=== PATIENT | female | born 1990 | race Caucasian/White ===

== ENCOUNTER 2016-04-23 15:43 | Emergency (ER) | payer OTHER ==
[~2016-04-23] VITALS: Ht 160 cm; Wt 57.3 kg
[~2016-04-23 15:43] MED LIST: AZO1 EACH MC; COLACE100 MG PO; IRON160 M1 PO; KEFLEX500 MG PO; MOTRIN800 MG PO; PERCOCET 5/31 TABLET PO; PRENATA CHEWAB1 EACH PO
[2016-04-23 16:44] LABS: HEMATOCRIT 44.2 % (36.0-46.0); MCH 28.6 PG (29.0-34.0); MCHC 34.2 G/DL (30.0-36.0); MCV 83.7 FL (83-99); MEAN PLAT.VOLUME 10.7 uM^3 (9.5-12.4); PLATELET COUNT 163 K/uL (156-360); RBC DIS.WIDTH-CV 13.1 % (11.8-14.6); RED BLOOD COUNT 5.28 M/uL (3.80-5.20); WHITE BLOOD COUNT 11.4 K/uL (4.1-10.2)
[2016-04-23 16:55] LABS: CHLORIDE 109 mEq/L (99-109); POTASSIUM 3.9 mEq/L (3.7-5.4); SODIUM 140 mEq/L (136-147)
[2016-04-23 16:57] LABS: GLUCOSE 97 mg/dL (70-99)
[2016-04-23 16:59] LABS: ANION GAP 13 MEQ/L (2-14); TOTAL BILIRUBIN 0.8 mg/dL (0.0-1.0)
[2016-04-23 17:01] LABS: ALKALINE PHOSPHATASE 82 IU/L (3-129); GFR ESTIMATE (CALCULATED) > 59 mL/min/
[2016-04-23 17:02] LABS: UREA NITROGEN (BUN) 12 mg/dL (9-23)
[2016-04-23 17:03] LABS: DIRECT BILIRUBIN 0.2 mg/dL (0.0-0.3)
[2016-04-23 17:04] LABS: LIPASE 12 U/L (1.0-51.0)
[2016-04-23 17:09] LABS: ADD MIUA? YES; BILIRUBIN NEGATIVE; BLOOD NEGATIVE; COLOR YELLOW ((YELLOW)); GLUCOSE (STRIP) NEGATIVE; KETONES 20; LEUKOCYTES NEGATIVE; NITRITE NEGATIVE; PROTEIN (STRIP) NEGATIVE; UROBILINOGEN 0.2 MG/DL (0.2-1.0)
[2016-04-23 17:13] LABS: QUANTITATIVE HCG < 4.0 MIU/ML
[2016-04-23 17:18] LABS: BACTERIA RARE /HPF; EPITHELIAL CELLS 1+ /HPF; MUCUS TRACE /LPF; RED BLOOD CELLS 0-5 /HPF (0-5); UCUL ADDED? NO; WHITE BLOOD CELLS 0-5 /HPF (0-5)
[2016-04-23] MEDS ORDERED: ZOFRAN4 MG PO (19:17)
[2016-04-23 19:47] VITALS: BP 104/73
== END 2016-04-23 19:48 | disposition home or self-care (01) ==
LOC: EME 15:43
PROVIDERS: Emergency Medicine
DX: K52.9 Noninfective gastroenteritis and colitis, unspecified (principal); Z87.891 Personal history of nicotine dependence
CPT/HCPCS: 74176; 80048; 80076; 81003; 83690; 84702; 85027; 99281; 99285; J1885; J2405; J7030